=== PATIENT | female | born 1950 | race Two or more races ===

== ENCOUNTER 2016-08-22 14:56 | Emergency (ER) | payer BC ==
[2016-08-22 15:52] VITALS: BP 144/54; PULSE 120; RESP 16; TEMP 98.2; O2SAT 96
--- NOTE | 2016-08-22 16:42 | UCPHY ---
H & P Time Seen by Provider: 08/22/16 16:08 Patient Type: New HPI/ROS: This patient presents with a chief complaint of low back pain which she localizes to her left buttock and which began approximately 1 week ago but became much worse after visit to the chiropractor today. She has been using naproxen with some relief. She denies any radiation of the pain into her legs and she denies any motor or sensory dysfunction. She denies any bowel or bladder dysfunction. She has had a fractured hip on the left side several years ago. Smoking Status: Former smoker Physical Exam: GENERAL: Well-appearing, well-nourished and in no acute distress except when moving HEAD: Atraumatic, normocephalic. ABDOMEN: Soft, nontender, No guarding, no rebound. EXTREMITIES: Normal range of motion, no pitting or edema. No clubbing or cyanosis. NEUROLOGICAL: Cranial nerves II through XII grossly intact. Normal speech, antalgic gait. PSYCH: Normal mood, normal affect. SKIN: Warm, dry, normal turgor, no visible rashes or lesions. Back: There is minimal tenderness in the left buttocks and no tenderness in the midline or either flank. Deep tender reflexes are symmetric. Straight leg raising is negative. Sensation and motor function are normal. Constitutional: Initial Vital Signs Temperature (C) 36.8 C 08/22/16 15:45 Heart Rate 120 H 08/22/16 15:45 Respiratory Rate 16 08/22/16 15:45 Blood Pressure 144/54 H 08/22/16 15:45 O2 Sat (%) 96 08/22/16 15:45 Allergies/Adverse Reactions: propoxyphene HCl [From Darvon] Allergy (Verified 08/22/16 15:47) Home Medications: Medication Instructions Recorded CYCLOBENZAPRINE HCL [Flexeril] 5 mg PO TIDPRN PRN #15 tab 08/22/16 Levothyroxine 08/22/16 Lisinopril 08/22/16 Pravastatin Sodium 08/22/16 Departure - Departure Disposition: Home, Routine, Self-Care Clinical Impression: Low back strain Qualifiers: Encounter type: initial encounter Qualifier Code: (S39.012A) Strain of muscle, fascia and tendon of lower back, initial encounter Condition: Good Instructions: Low Back Strain (ED), Lower Back Exercises (ED) Additional Instructions: If you continue to have back pain after 1 week you should be re-evaluated. Causes for concern would be weakness or numbness in her feet or legs. Or increasing pain. Apply heat to the area several times daily. Avoid painful activities .Adult Pain & Fever Control: We recommend Acetaminophen (Tylenol) and Ibuprofen (Motrin, Advil) for pain and fever control. When fever is high or pain severe, both drugs can be used at the same time, but at different intervals. Please note the time differences. Your dose is: Acetaminophen [650]mg every 4 to 6 hours ibuprofen [600]mg every [6] hours with food OR naproxen Sodium (Aleve) [440]mg every 12 hours. Note: do not take Acetaminophen with Hydrocodone (Vicodin, Lortab) or Oxycodone (Percocet). These medications also contain Acetaminophen. No more than 3000 mg of Acetaminophen should be taken in 24 hours (for an adult) . The maximal dose of ibuprofen that it is safe in a 24-hour period is 2400 mg. You may take 400 mg every 4 hours, 600 mg every 6 hours or 800 mg every 8 hours safely. Prescriptions: CYCLOBENZAPRINE HCL [Flexeril] 5 mg PO TIDPRN PRN #15 tab PRN Reason: back pain - PQRS PQRS Measurement: Not applicable
== END 2016-08-22 19:12 | disposition home or self-care (01) ==
LOC: CED 14:56
DX: S39.012A Strain of muscle, fascia and tendon of lower back, initial encounter (principal); Z87.891 Personal history of nicotine dependence
CPT/HCPCS: 99203-PO; G0463-PO

== ENCOUNTER → 2018-10-05 | Outpatient (CLI) | payer OTHER | LOC: CIMAGING 12:35 | PROVIDERS: ATTEND Family Medicine | DX: E04.2 Nontoxic multinodular goiter (principal) | CPT/HCPCS: 76536-PO ==

== ENCOUNTER → 2018-10-19 | Outpatient (CLI) | payer OTHER ==
[~2018-10-19] MED LIST: LIDOCAINE 1% 300 MG/30 ML SDV ONE
== END ==
LOC: FIMAGING 11:28
PROVIDERS: ATTEND Family Medicine
DX: E04.1 Nontoxic single thyroid nodule (principal); E87.1 Hypo-osmolality and hyponatremia